=== PATIENT | female | born 1970 | race Caucasian/White ===

== ENCOUNTER 2017-09-12 14:39 | Outpatient (CLI) | payer MEDICARE ==
--- NOTE | 2017-09-13 16:20 | MRI Report ---
EXAM: LEFT KNEE MRI WITHOUT CONTRAST EXAM DATE: 09/12/2017 03:17 PM. CLINICAL HISTORY: Medial and posterior left knee pain with popping for 2 months. COMPARISON: Left knee radiography from 09/05/2017. TECHNIQUE: Multiplanar, multisequence T1-weighted and fluid-sensitive sequences of the knee without c ontrast. Other: None. FINDINGS: Bones and Articular Cartilage: Small subcortical cyst at the posterosuperior aspect of the lateral fe moral condyle. Small subchondral osteophyte and focal grade 2 chondromalacia at the medial trochlear facet. Focal grade 1 chondromalacia at the median ridge and lateral facet of the patella. No patellar subluxation. Tiny marginal osteophytes at the medial femoral condyle and medial tibial plateau. Medial Meniscus: Horizontal tear at the posterior horn. There is a cyst and intrasubstance degenerati on within the posterior horn. Lateral Meniscus: The lateral meniscus is intact. Cruciate Ligaments: The anterior and posterior cruciate ligaments are intact. Collateral Ligaments: The medial collateral and lateral collateral ligamentous structures are intact. Tendons: The quadriceps, patellar, semimembranosus, and popliteus tendons are unremarkable. Musculature: No edema or fatty atrophy. Other: No effusion. No popliteal cyst. No loose bodies. The medial and lateral retinacula are intact . Small ganglion adjacent to the femoral origin site of the lateral head gastrocnemius tendon. The kearney bcutaneous and infrapatellar fat are unremarkable. IMPRESSION: 1. Posterior horn medial meniscal tear. There is also a cyst and intrasubstance degeneration within t he posterior horn medial meniscus. 2. 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 [facility] MUSCULOSKELETAL RADIOLOGY SECTION Referring Provider Line: [phone] SITE ID: [id number]
== END 2017-09-12 14:40 | disposition home or self-care (01) ==
LOC: DI 14:39
PROVIDERS: ATTEND Orthopaedic Surgery
DX: S83.242A Other tear of medial meniscus, current injury, left knee, initial encounter (principal); M22.42 Chondromalacia patellae, left knee

== ENCOUNTER 2017-10-12 09:36 | Outpatient (CLI) | payer MEDICARE ==
[2017-10-12 09:52] LABS: BASOPHILS # (AUTO) 0.1 10^3/uL (0.0-0.1); BASOPHILS % (AUTO) 0.7 %; EOSINOPHILS # (AUTO) 0.2 10^3/uL (0.0-0.7); EOSINOPHILS % (AUTO) 2.6 %; HGB - HEMOGLOBIN 14.2 g/dL (12.0-16.0); LYMPHOCYTES # (AUTO) 2.6 10^3/uL (1.5-3.5); LYMPHOCYTES % (AUTO) 28.8 %; MEAN CORPUSCULAR HGB CONC 33.9 g/dL (32.0-36.0); MEAN CORPUSCULAR VOLUME 85.6 fL (81.0-99.0); MEAN PLATELET VOLUME 7.2 fL (7.9-10.8); MONOCYTES # (AUTO) 0.9 10^3/uL (0.0-1.0); MONOCYTES % (AUTO) 9.4 %; NEUTROPHILS # (AUTO) 5.4 10^3/uL (1.5-6.6); NEUTROPHILS % (AUTO) 58.5 %; PLT - PLATELET COUNT 276 10^3/uL (130-450); RED CELL DISTRIBUTION WIDTH 13.8 % (12.0-15.0); WHITE BLOOD COUNT 9.1 x10^3/uL (4.8-10.8)
== END 2017-10-12 09:37 | disposition home or self-care (01) ==
LOC: LAB 09:36
PROVIDERS: ATTEND Orthopaedic Surgery
DX: Z01.812 Encounter for preprocedural laboratory examination (principal); S83.242D Other tear of medial meniscus, current injury, left knee, subsequent encounter
CPT/HCPCS: 36415; 85025

== ENCOUNTER 2017-10-16 08:40 | Day surgery (SDC) | payer MEDICARE ==
[2017-10-16] MEDS ORDERED: ceFAZolin 2 GM/50 ML 2 GM/50 ML BAG IV ONE (08:57)
[2017-10-16] MEDS ORDERED: LACTATED RINGERS 1,000 ML IV ONE ×2 (09:40→14:06)
[2017-10-16] MEDS ORDERED: EPINEPHrine 1 MG/ML AMP ONE (10:10)
[2017-10-16] MEDS ORDERED: BUPIVACAINE 0.25% PF 30 ML VIAL ONE (10:10)
[2017-10-16] MEDS ORDERED: KETAMINE 500 MG/10 ML VIAL IVP ONE (10:50)
[2017-10-16] MEDS ORDERED: DEXAMETHASONE 4 MG/ML VIAL IVP ONE (10:50)
[2017-10-16] MEDS ORDERED: ePHEDrine 50 MG/ML VIAL IVP ONE (10:50)
[2017-10-16] MEDS ORDERED: ONDANSETRON 4 MG/2 ML VIAL IVP ONE (10:50)
[2017-10-16] MEDS ORDERED: MIDAZOLAM 2 MG/2 ML VIAL IVP ONE (10:50)
[2017-10-16] MEDS ORDERED: fentaNYL 100 MCG/2 ML VIAL IVP ONE (10:50)
[2017-10-16] MEDS ORDERED: PROPOFOL 200 MG/20 ML VIAL IVP ONE (10:50)
[2017-10-16] MEDS ORDERED: KETOROLAC 30 MG/ML VIAL IVP ONE (10:50)
[2017-10-16] MEDS ORDERED: BUPIVACAINE 0.25% PF 30 ML VIAL SUBQ ONE (11:00)
[2017-10-16] MEDS ORDERED: ONDANSETRON 4 MG/2 ML VIAL ONE (13:11)
[2017-10-16] MEDS ORDERED: ACETAMINOPHEN 1,000 MG/100 ML 100 ML IV ONE (13:26)
[2017-10-16] MEDS ORDERED: SODIUM CHLORIDE 0.9% 10 ML ONE (13:38)
[2017-10-16] MEDS ORDERED: SODIUM CHLORIDE FLUSH 0.9% 10 ML SYRINGE ONE (13:39)
[2017-10-16 14:47] VITALS: BP 140/70
--- NOTE | 2017-10-16 20:41 | OPERATIVE REPORT ---
DATE OF SERVICE: 10/16/2017 Physician: Cole Barnett MD PREOPERATIVE DIAGNOSIS: Left knee posterior horn medial meniscus tear. POSTOPERATIVE DIAGNOSIS: Left knee posterior horn medial meniscus tear. NAME OF PROCEDURE: Left knee arthroscopic partial medial meniscectomy. SURGEON: Cole Barnett MD PRODUCTION CONSULTANT: None. ANESTHESIA: General LMA plus intra-articular Marcaine. FINDINGS: The patellofemoral joint had synovitis, but the articular cartilage was intact. There was a medial patellar plica remnant but no sign of irritation on the femoral condyle. The lateral compartment was normal with a normal appearance to the femoral articular and tibial articular surfaces. The lateral meniscus was intact without even fraying. In the notch, the ACL was intact and tightened with stress. In the medial compartment, there was grade 3 chondromalacia of the medial portion of the tibial plateau. There was easily seen irregular tear in the posterior horn of the medial meniscus. There was no significant femoral chondromalacia. INDICATIONS: This woman had been bothered by sharp medial knee pains of several months' duration. MRI scan showed a posterior horn medial meniscus tear. PROCEDURE: The patient was brought into the operating room and placed under adequate general anesthesia. The knee was then infiltrated with 50 mL of 0.25% Marcaine with epinephrine. Portal sites were infiltrated with about 0.75 mL of same. The left lower extremity was prepped and sterilely draped in the usual fashion. No tourniquet was used. Timeout was held to identify the patient, the site, and the procedure. The usual inferolateral inferomedial portals were established for scope and instrumentation respectively. Thorough exam of the knee was done and is reported above. Attention was then directed to the medial compartment. A very small, straight, up-turned and curved biters were used to trim the meniscus back to a stable remnant. The femoral articular cartilage was still intact at the end of the procedure. The scope was removed. The knee was irrigated until clear with boluses of normal saline. The wounds were closed with 4-0 nylon [id number] sutures. A sterile bandage was applied. The patient was then awakened, extubated, and taken to the recovery room in good condition, having tolerated the procedure well. TD: 10/16/2017 20:41
== END 2017-10-16 08:41 | disposition home or self-care (01) ==
LOC: SDS 08:40
PROVIDERS: ATTEND Orthopaedic Surgery
PROC: 0SBD4ZZ Excision of Left Knee Joint, Percutaneous Endoscopic Approach (ICD-10-PCS; principal; 2017-10-16 09:45)
DX: S83.242A Other tear of medial meniscus, current injury, left knee, initial encounter (principal)
CPT/HCPCS: 29881; J0131; J0690; J7120

== ENCOUNTER 2018-03-08 13:07 | Outpatient (CLI) | payer MEDICARE | END 2018-03-08 13:08 | disposition home or self-care (01) | LOC: SC 13:07 | PROVIDERS: ATTEND Internal Medicine Pulmonary Disease | DX: G47.10 Hypersomnia, unspecified (principal); G47.8 Other sleep disorders; R06.83 Snoring; G47.00 Insomnia, unspecified; E66.9 Obesity, unspecified; Z68.36 Body mass index [BMI] 36.0-36.9, adult | CPT/HCPCS: 99203; G0463; 99212 ==

== ENCOUNTER 2018-04-27 19:21 | Outpatient (CLI) | payer MEDICARE | END 2018-04-27 19:22 | disposition home or self-care (01) | LOC: SC 19:21 | PROVIDERS: ATTEND Internal Medicine Pulmonary Disease | DX: G47.33 Obstructive sleep apnea (adult) (pediatric) (principal) | CPT/HCPCS: 95810 ==

== ENCOUNTER 2018-05-08 09:55 | Outpatient (CLI) | payer MEDICARE | END 2018-05-08 09:56 | disposition home or self-care (01) | LOC: SC 09:55 | PROVIDERS: ATTEND Internal Medicine Pulmonary Disease | DX: G47.33 Obstructive sleep apnea (adult) (pediatric) (principal) | CPT/HCPCS: 99213; G0463; 99212 ==

== ENCOUNTER 2018-07-12 09:13 | Outpatient (CLI) | payer MEDICARE | END 2018-07-12 09:14 | disposition home or self-care (01) | LOC: SC 09:13 | PROVIDERS: ATTEND Nurse Practitioner Family | DX: G47.33 Obstructive sleep apnea (adult) (pediatric) (principal); R53.83 Other fatigue | CPT/HCPCS: 99214; G0463; 99212 ==

== ENCOUNTER 2018-11-13 09:04 | Outpatient (CLI) | payer MEDICARE ==
[2018-11-13 13:53] LABS: CHOL/HDL RATIO 5.2 (<4.4); CHOLESTEROL 172 mg/dL; HDL CHOLESTEROL 33 mg/dL; LDL CHOLESTEROL,CALCULATED 97 mg/dL; LDL/HDL RATIO 2.9 (<4.4); VLDL CHOLESTEROL 42 mg/dL
[2018-11-13 14:20] LABS: HB2 TOTAL 14.4 g/dL; HEMOGLOBIN A1C 0.57 g/dL; HEMOGLOBIN A1C % 5.8 % (4.6-6.2)
== END 2018-11-13 09:05 | disposition home or self-care (01) ==
LOC: LAB.WCP 09:04
PROVIDERS: ATTEND Family Medicine
DX: R07.9 Chest pain, unspecified (principal); F20.9 Schizophrenia, unspecified; Z79.899 Other long term (current) drug therapy
CPT/HCPCS: 36415; 80061; 83036; 83721

== ENCOUNTER 2019-07-22 11:19 | Outpatient (CLI) | payer MEDICARE, OTHER ==
--- NOTE | 2019-07-22 15:27 | CARDIAC PROCEDURE NOTE ---
DATE OF SERVICE: 07/22/2019 Physician: Janet Rockwell MD PROTOCOL: Jaylan. TIME: Seven minutes 40 seconds. METS: 9.63. REASON FOR STOPPING: Fatigue. HEART RATE RESPONSE: Baseline 66 to maximum 150, which was over the maximum predicted. BLOOD PRESSURE RESPONSE: Reached a maximum of 217/37. SYMPTOMS: No chest pain. ST SEGMENT RESPONSE: No significant ST elevations or depressions. ARRHYTHMIAS: None detected. IMPRESSION: No symptoms. No significant EKG changes. CONCLUSION: Await imaging studies. TD: 07/22/2019 13:27
--- NOTE | 2019-07-24 10:07 | Nuclear Medicine Report ---
Reason: CHEST PAIN - 275 LB Procedure Date: 07/22/2019 Accession Number: [id number] / [id number] Procedure: NM - Myocardial Perfusion STR/RST CPT Code: Final Report FULL RESULT: EXAM: SINGLE-ISOTOPE EXERCISE STRESS TEST. SINGLE-ISOTOPE AND TWO-DAY REST/STRESS MYOCARDIAL PERFUSION SCANS WITH TOMOGRAPHIC IMAGING, QUANTITATIVE ANALYSIS, WALL MOTION ANALYSIS AND CALCULATION OF EJECTION FRACTION. EXAM DATE: 07/22/2019 03:25 PM. CLINICAL HISTORY: CHEST PAIN - 275 LB. COMPARISON: None. TECHNIQUE: On 07/22/2019, a treadmill exercise stress was performed according to department protocol. The patient exercised for 7 minutes and 40 seconds. The maximum heart rate was 150 bpm, which was 87% of the maximum predicted heart rate of 172 bpm. At approximately peak heart rate, 25.6 mCi of Tc-99m sestamibi was injected for stress myocardial perfusion scan. Motion correction was applied when appropriate. Gated tomographic images were obtained for wall motion analysis and computation of left ventricular ejection fraction. On 07/23/2019, a rest myocardial perfusion scan was done with tomography after the intravenous administration of 26.7 mCi Tc-99m sestamibi. FINDINGS: Perfusion images: Left ventricular chamber size appears normal at rest and unchanged at stress. No convincing fixed perfusion deficits. No convincing reversible perfusion deficits. SSS 2, SRS 0, SDS 2. Gated images: There is global hypokinesis. Calculated left ventricular EDV 54 mL, ESV 38 mL. The left ventricular ejection fraction is estimated at 29% (normal > 50%). IMPRESSION: 1. No convincing reversible perfusion deficits to indicate stress-induced ischemia. 2. No convincing fixed perfusion deficits. 3. Left ventricular ejection fraction of 29% (normal > 50%). Please correlate findings with stress ECG tracings and procedure notes. [facility]
== END 2019-07-22 11:20 | disposition home or self-care (01) ==
LOC: DI 11:19
PROVIDERS: ATTEND Internal Medicine
DX: R07.9 Chest pain, unspecified (principal)
CPT/HCPCS: 78452; 93017; A9500

== ENCOUNTER 2019-08-01 07:33 | Outpatient (CLI) | payer MEDICARE | END 2019-08-01 07:34 | disposition home or self-care (01) | LOC: DI 07:33 | PROVIDERS: ATTEND Internal Medicine Cardiovascular Disease | DX: R94.39 Abnormal result of other cardiovascular function study (principal) | CPT/HCPCS: 93306 ==

== ENCOUNTER 2019-08-13 10:41 | Outpatient (CLI) | payer MEDICARE ==
[2019-08-13] MEDS ORDERED: IOVERSOL 320 100 ML VIAL IVP ONE ×2 (10:47→13:35)
--- NOTE | 2019-08-15 10:02 | CT Report ---
Reason: CORONARY CALCIFICATION Procedure Date: 08/13/2019 Accession Number: [id number] / [id number] Procedure: CT - ANGIO CHEST W/WO CPT Code: Final Report FULL RESULT: EXAM: CT ANGIOGRAM CHEST EXAM DATE: 08/13/2019 11:16 AM. CLINICAL HISTORY: Shortness of breath. Chest pain. COMPARISON: None. TECHNIQUE: Routine helical imaging was performed through the chest in the pulmonary arterial phase. IV Contrast: 58 mL Optiray 320. Reconstructions: Coronal 3-D MIP reconstructions. Sagittal and coronal. In accordance with CT protocol optimization, one or more of the following dose reduction techniques were utilized for this exam: automated exposure control, adjustment of mA and/or KV based on patient size, or use of iterative reconstructive technique. FINDINGS: Pulmonary Arteries: Diagnostic quality: Adequate through the segmental arteries. No evidence for acute or chronic pulmonary emboli. Lungs/Pleura: No consolidation, nodules, or edema. No effusions or pneumothorax. Mediastinum: Normal. No cardiac enlargement or adenopathy. Thoracic Aorta: Unremarkable. Upper Abdomen: Unremarkable. Other: None. IMPRESSION: Normal pulmonary CT angiogram. No pulmonary emboli or other acute cardiopulmonary abnormality demonstrated. [facility]
== END 2019-08-13 10:42 | disposition home or self-care (01) ==
LOC: DI 10:41
PROVIDERS: ATTEND Internal Medicine Cardiovascular Disease
DX: R07.9 Chest pain, unspecified (principal); R06.09 Other forms of dyspnea; I25.10 Atherosclerotic heart disease of native coronary artery without angina pectoris
CPT/HCPCS: 71275; Q9967

== ENCOUNTER 2019-09-20 15:22 | Outpatient (CLI) | payer MEDICARE | END 2019-09-20 15:23 | disposition home or self-care (01) | LOC: COV 15:22 | PROVIDERS: ATTEND Family Medicine | DX: R05 Cough (principal); R50.9 Fever, unspecified | CPT/HCPCS: 81599 ==

== ENCOUNTER 2020-08-13 13:30 | Outpatient (CLI) | payer MEDICARE ==
--- NOTE | 2020-08-13 16:50 | XRAY Report ---
PROCEDURE: Elbow 3 View LT INDICATIONS: ELBOW JOINT PAIN,LEFT TECHNIQUE: 3 views of the elbow were acquired. COMPARISON: None FINDINGS: Bones: No fractures or dislocations. No suspicious bony lesions. Soft tissues: No elbow joint effusion. No suspicious soft tissue calcifications. IMPRESSION: No acute fracture. No osseous lesion. If symptoms and/or clinical suspicion for pathology continue, f urther assessment with repeat plain films, or advanced imaging (e.g., CT, MRI, or bone scan) is recom mended for further assessment. Reviewed by: Justin Caceres MD on 08/13/2020 4:48 PM PST Approved by: Justin Caceres MD on 08/13/2020 4:48 PM PST Station ID: [id number]
== END 2020-08-13 13:31 | disposition home or self-care (01) ==
LOC: DI 13:30
PROVIDERS: ATTEND Family Medicine
DX: M25.522 Pain in left elbow (principal)

== ENCOUNTER 2021-01-22 08:00 | Outpatient (CLI) | payer MEDICARE, OTHER ==
[2021-01-22 12:02] LABS: BASOPHILS # (AUTO) 0.1 10^3/uL (0.0-0.1); BASOPHILS % (AUTO) 0.9 %; EOSINOPHILS # (AUTO) 0.5 10^3/uL (0.0-0.7); EOSINOPHILS % (AUTO) 4.9 %; HCT - HEMATOCRIT 42.4 % (37.0-47.0); HGB - HEMOGLOBIN 13.5 g/dL (12.0-16.0); LYMPHOCYTES # (AUTO) 2.5 10^3/uL (1.5-3.5); LYMPHOCYTES % (AUTO) 25.9 %; MEAN CORPUSCULAR HEMOGLOBIN 28.4 pg (27.0-31.0); MEAN CORPUSCULAR HGB CONC 31.8 g/dL (32.0-36.0); MEAN CORPUSCULAR VOLUME 89.3 fL (81.0-99.0); MEAN PLATELET VOLUME 9.2 fL (7.9-10.8); MONOCYTES # (AUTO) 0.7 10^3/uL (0.0-1.0); NEUTROPHILS # (AUTO) 5.8 10^3/uL (1.5-6.6); NEUTROPHILS % (AUTO) 60.7 %; PLT - PLATELET COUNT 297 10^3/uL (130-450); RED BLOOD COUNT 4.75 10^6/uL (4.20-5.40); RED CELL DISTRIBUTION WIDTH 13.9 % (12.0-15.0); WHITE BLOOD COUNT 9.6 x10^3/uL (4.8-10.8)
[2021-01-22 12:03] LABS: BILIRUBIN,URINE NEGATIVE (NEGATIVE); GLUCOSE, URINE (UA) NEGATIVE (NEGATIVE); KETONES,URINE (UA) NEGATIVE (NEGATIVE); LEUKOCYTE ESTERASE, URINE TRACE (NEGATIVE); NITRITE,URINE NEGATIVE (NEGATIVE); OCCULT BLOOD,URINE SMALL (NEGATIVE); PROTEIN,URINE NEGATIVE (NEGATIVE); UROBILINOGEN,URINE 0.2 (NORMAL) E.U./dL (NORMAL)
[2021-01-22 12:20] LABS: CLARITY,URINE CLEAR (CLEAR)
[2021-01-22 12:24] LABS: ESTIMATED AVERAGE GLUCOSE 120 mg/dL (70-100); HEMOGLOBIN A1c% 5.8 % (4.27-6.07)
[2021-01-22 12:28] LABS: RBC,URINE 0-5 /HPF (0-5); SQUAMOUS EPITHELIAL CELL,UR FEW Squamous (<= Few); WBC,URINE 0-3 /HPF (0-5)
[2021-01-22 12:29] LABS: BACTERIA,URINE Rare /HPF (None Seen); MUCUS,URINE Few Strands
[2021-01-22 12:33] LABS: THYROID STIMULATING HORMONE 1.09 uIU/mL (0.34-5.60)
[2021-01-22 12:38] LABS: ALBUMIN 3.7 g/dL (3.2-5.5); ALBUMIN/GLOBULIN RATIO 1.1 (1.0-2.2); ALKALINE PHOSPHATASE 73 IU/L (42-121); ALT ALANINE AMINOTRANSFERASE 21 IU/L (10-60); AST ASPARTATE AMINOTRANSFERASE 16 IU/L (10-42); BILIRUBIN,TOTAL 0.7 mg/dL (0.2-1.0); BUN - BLOOD UREA NITROGEN 18 mg/dL (6-20); CALCIUM 9.5 mg/dL (8.5-10.3); CARBON DIOXIDE - CO2 27 mmol/L (21-32); CHLORIDE 105 mmol/L (101-111); CHOL/HDL RATIO 4.8 (<4.4); CHOLESTEROL 177 mg/dL; CREATININE 0.9 mg/dL (0.4-1.0); GFR - MDRD 66 (>89); GLUCOSE 106 mg/dL (70-100); HDL CHOLESTEROL 37 mg/dL; LDL CHOLESTEROL,CALCULATED 95 mg/dL; LDL/HDL RATIO 2.6 (<4.4); POTASSIUM 3.9 mmol/L (3.5-5.0); SODIUM 139 mmol/L (135-145); TOTAL PROTEIN 7.2 g/dL (6.7-8.2); TRIGLYCERIDES 223 mg/dL; VLDL CHOLESTEROL 45 mg/dL
== END 2021-01-22 23:59 | disposition home or self-care (01) ==
LOC: LAB.WCP 08:00
PROVIDERS: ATTEND Nurse Practitioner
DX: R53.83 Other fatigue (principal)
CPT/HCPCS: 36415; 80053; 80061; 81001; 83036; 83721; 84443; 85025; 87086

== ENCOUNTER 2021-04-02 10:27 | Outpatient (CLI) | payer MEDICARE | END 2021-04-02 23:59 | disposition home or self-care (01) | LOC: LAB.N 10:27 | PROVIDERS: ATTEND Family Medicine | DX: U07.1 COVID-19 (principal) | CPT/HCPCS: 87070; U0004 ==

== ENCOUNTER 2021-04-10 09:50 | Outpatient (CLI) | payer MEDICARE ==
--- NOTE | 2021-04-10 11:30 | XRAY Report ---
PROCEDURE: Chest 2 View X-Ray INDICATIONS: COUGH TECHNIQUE: 2 view(s) of the chest. COMPARISON: Correlation is made with prior chest CT, 08/13/2019 FINDINGS: Surgical changes and devices: None. Lungs and pleura: An incomplete inspiratory result is noted, with low lung volumes and crowding of t he vascular markings. No focal infiltrates are seen. No large pneumothorax or large pleural effusion can be seen. Mild generalized interstitial prominence can be seen. Mediastinum: Mediastinal contours are normal. Heart size is normal. Bones and chest wall: No suspicious bony abnormalities. Age-appropriate degenerative changes are see n. Soft tissues appear unremarkable. IMPRESSION: Interstitial prominence is seen, which is nonspecific. Differential diagnosis includes p ulmonary edema and artifact (in this patient with low lung volumes). Please also consider COVID pneu monia. Reviewed by: Jakub Carranza MD on 04/10/2021 10:28 AM [facility] Approved by: Jakub Carranza MD on 04/10/2021 10:28 AM [facility] Station ID: [id number]
== END 2021-04-10 23:59 ==
LOC: DI.N 09:50
PROVIDERS: ATTEND Family Medicine
DX: R91.8 Other nonspecific abnormal finding of lung field (principal)

== ENCOUNTER 2021-08-03 14:00 | Outpatient (CLI) | payer MEDICARE ==
[2021-08-03 22:32] LABS: BACTERIAL VAGINOSIS DNA NEGATIVE (NEGATIVE); CANDIDA GLABRATA DNA NEGATIVE (NEGATIVE); CANDIDA GROUP DNA NEGATIVE (NEGATIVE); CANDIDA KRUSEI DNA NEGATIVE (NEGATIVE); TRICHOMONAS VAGINALIS DNA NEGATIVE (NEGATIVE)
== END 2021-08-03 23:59 | disposition home or self-care (01) ==
LOC: LAB 14:00
PROVIDERS: ATTEND Physician Assistant
DX: L29.8 Other pruritus (principal)
CPT/HCPCS: 87661; 87801

== ENCOUNTER 2021-08-11 08:00 | Outpatient (CLI) | payer MEDICARE ==
[2021-08-11 23:10] LABS: BACTERIAL VAGINOSIS DNA NEGATIVE (NEGATIVE); CANDIDA GLABRATA DNA NEGATIVE (NEGATIVE); CANDIDA GROUP DNA NEGATIVE (NEGATIVE); CANDIDA KRUSEI DNA NEGATIVE (NEGATIVE); TRICHOMONAS VAGINALIS DNA NEGATIVE (NEGATIVE)
[2021-08-11 23:51] LABS: CHLAMYDIA TRACHOMATIS DNA NEGATIVE (NEGATIVE); NEISSERIA GONORRHOEAE DNA NEGATIVE (NEGATIVE); TRICHOMONAS VAGINALIS DNA NEGATIVE (NEGATIVE)
== END 2021-08-11 23:59 | disposition home or self-care (01) ==
LOC: LAB 08:00
PROVIDERS: ATTEND Physician Assistant Medical
DX: B37.9 Candidiasis, unspecified (principal)
CPT/HCPCS: 87491; 87591; 87661; 87801

== ENCOUNTER 2021-08-12 09:40 | Emergency (ER) | payer MEDICARE ==
[2021-08-12 09:51] VITALS: BP 144/74
--- NOTE | 2021-08-12 12:31 | ED Physician Documentation ---
History of Present Illness - Stated complaint Stated Complaint: FEMALE - Chief complaint Chief Complaint: General - History obtained from History obtained from: Patient - History of Present Illness Timing: Today Pain level max: 6 Pain level now: 4 - Additonal information Additional information: Patient is a 51-year-old female who presents to the emergency department complaining of vaginal pain/labial pain. She saw her PCP who prescribed her Diflucan. She states that it did not help the pain and itching. She had a negative bacterial vaginitis panel at that time. She was seen at the walk-in clinic last night and again tested for yeast infection, bacterial vaginitis, gonorrhea, chlamydia. Has no STD exposure. She complains of increased pain and burning to the bilateral labia. Worse with walking, nothing makes it better. She was prescribed antifungal topical medication last night but has not started this. She attempted to call the gynecology office today but was told her next appointment is 6 months out. No vaginal bleeding or discharge. Review of Systems Constitutional: denies: Fever, Chills GI: denies: Vomiting, Diarrhea Skin: denies: Rash Musculoskeletal: denies: Neck pain, Back pain Neurologic: denies: Headache PD PAST MEDICAL HISTORY - Past Medical History Past Medical History: Yes Neuro: Migraines Psych: Depression - Present Medications Home Medications: Ambulatory Orders Medication Instructions Recorded Confirmed Fluoxetine HCl 20 mg PO DAILY 10/12/17 10/16/17 Gabapentin 800 mg PO QPM 10/12/17 10/16/17 Linaclotide [Linzess] 72 mcg PO DAILY 10/12/17 10/16/17 Montelukast Sodium 10 mg PO DAILY 10/12/17 10/12/17 Prochlorperazine Maleate 10 mg PO Q8HR PRN 10/12/17 10/16/17 SUMAtriptan [Imitrex] 100 mg PO ONCE PRN 10/12/17 10/16/17 SUMAtriptan succinate [Sumatriptan 6 mg SQ ONCE PRN 10/12/17 10/16/17 Succinate] clonazePAM [Clonazepam] 0.5 mg PO QID PRN 10/12/17 10/16/17 HYDROcod/ACETAM 5/325 [[place] 5/325] 1 - 2 ea PO Q6H PRN #14 tablet 08/12/21 Ibrexafungerp Citrate [Brexafemme] 300 mg PO BID #4 tablet 08/12/21 - Allergies Allergies/Adverse Reactions: Allergies Allergy/AdvReac Type Severity Reaction Status Date / Time ciprofloxacin [From Cipro] AdvReac NVD Verified 08/12/21 09:51 morphine AdvReac Headache Verified 08/12/21 09:51 - Social History Does the pt smoke?: No Does the pt have substance abuse?: No - Family History Family history: reports: Non contributory - Immunizations Immunizations are current?: Yes PD ED PE NORMAL - Vitals Vital signs reviewed: Yes - General General: Alert and oriented X 3, No acute distress - HEENT HEENT: Moist mucous membranes - Neck Neck: Supple, no meningeal sign - Cardiac Cardiac: RRR - Respiratory Respiratory: No respiratory distress, Clear bilaterally - Abdomen Abdomen: Soft, Non tender, Non distended - Female Female : 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 Scant white discharge. No induration. No fluctuance. No abscess.) - Derm Derm: Warm and dry - Extremities Extremities: No deformity - Neuro Neuro: Alert and oriented X 3 - Psych Psych: Normal mood, Normal affect Results - Vitals Vitals: Vital Signs - 24 hr 08/12/21 09:45 Temperature 36.5 C Heart Rate 80 Respiratory 18 Rate Blood Pressure 144/74 H O2 Saturation 97 Oxygen O2 Source Room air PD MEDICAL DECISION MAKING - ED course Complexity details: reviewed old records, considered differential, d/w patient ED course: Patient appears to have inflammation of the bilateral labia. Unclear etiology. Possible that she has Diflucan resistance yeast infection. We will trial her on Brexafemme, Pain medication and have her continue the ointment prescribed last night. Patient will follow up with gynecology for further care she fails improved. I am prescribing a short course of short-acting opioid pain medication for this patient. 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 I have discussed that the opioids are for short term therapy only, and will not be refilled from the ED. patient counseled regarding signs and symptoms for which I believe and urgent re-evaluation would be necessary. Patient with good understanding of and agreement to plan and is comfortable going home at this time This document was made in part using voice recognition software. While efforts are made to proofread this document, sound alike and grammatical errors may occur. Departure - Departure Disposition: 01 Home, Self Care Clinical Impression: Vulvovaginitis Condition: Good Instructions: ED Vaginal Infec Fungal Julissa Follow-Up: Archana Acuña ARNP [Primary Care Provider] - Within 1 week [facility] [Provider Group] Prescriptions: Ibrexafungerp Citrate [Brexafemme] 300 mg PO BID #4 tablet HYDROcod/ACETAM 5/325 [[place] 5/325] 1 - 2 ea PO Q6H PRN #14 tablet PRN Reason: Pain Comments: I recommend that you use the clotrimazole cream as well. Your vaginal swabs were negative today. I recommend you follow up closely with gynecology if you are not improving. Your prescriptions were sent to [facility] in [place]. I am prescribing a short course of narcotic pain medication for you. These are potentially dangerous and addictive medications that should be used carefully. These medications may constipate you. Take an ecae-fwd-mcfwrdn stool softener (docusate) twice daily with plenty of water while taking these medications. If you go 24 hours without a bowel movement, take qyxj-lug-cfvrcdl miralax, per package instructions. Do not drink or drive while taking these medications. If you received narcotic or sedating medications while in the emergency department, do not drive for 24 hours. Store this medication in a safe, secure place and out of reach of children. It is a violation of federal law to give or sell this medication to another person or to use in a manner other than prescribed. The ED will not refill narcotic prescriptions, including prescriptions lost or stolen. To dispose of unwanted medications: 1. [facility] at [address] in [place] has a medication drop box. They accept prescription medications (in pill form) Monday through Monday 9:00 a.m. to 5:00 p.m. 2. [facility] accepts prescription medications (in pill form only) for disposal year round. Call for more information. 3. Contact the [facility] for the next [facility] sponsored prescription drug collection event. , [phone], or [phone]; Discharge Date/Time: 08/12/21 12:57
[2021-08-12] MEDS ORDERED: HYDROcod/ACETAM 5/325 MG TABLET PO STA (12:39)
== END 2021-08-12 12:57 | disposition home or self-care (01) ==
LOC: ED 09:40
DX: N76.0 Acute vaginitis (principal)
CPT/HCPCS: 99282; A9270

== ENCOUNTER 2021-08-15 13:11 | Outpatient (CLI) | payer MEDICARE | END 2021-08-15 23:59 | disposition home or self-care (01) | LOC: LAB.N 13:11 | PROVIDERS: ATTEND Physician Assistant | DX: L29.8 Other pruritus (principal) | CPT/HCPCS: 87070; 87077; 87181; 87205 ==